=== PATIENT | male | born 1965 ===

== ENCOUNTER 2016-11-19 08:39 | Day surgery (SDC) | payer OTHER ==
[2016-11-19] MEDS ORDERED: Lactated Ringer's 500 ML IV ONE (08:53)
[2016-11-19] MEDS ORDERED: Propofol 10 mg/ml Inj (20 ML) ONE (10:21)
[2016-11-19 11:06] VITALS: BP 114/76; PULSE 89; RESP 12; TEMP 96.9; O2SAT 100
== END 2016-11-19 14:34 | disposition home or self-care (01) ==
LOC: H.ENDO 08:39 → EDSEX 08:39 → MERGE 08:39 → H.ENDO 14:34
PROVIDERS: ATTEND Internal Medicine Gastroenterology
DX: R10.13 Epigastric pain (principal); E78.5 Hyperlipidemia, unspecified; R12 Heartburn

== ENCOUNTER 2016-12-03 09:23 | Day surgery (SDC) | payer OTHER ==
[2016-12-03] MEDS ORDERED: Lactated Ringer's 500 ML IV ONE (09:47)
[2016-12-03 10:01] VITALS: TEMP 97
[2016-12-03] MEDS ORDERED: Propofol 10 mg/ml Inj (20 ML) ONE (10:41)
[2016-12-03 11:28] VITALS: BP 105/76; PULSE 60; RESP 15; O2SAT 98
== END 2016-12-03 11:38 | disposition home or self-care (01) ==
LOC: H.ENDO 09:23
PROVIDERS: ATTEND Internal Medicine Gastroenterology
DX: Z86.010 Personal history of colon polyps (principal); E78.5 Hyperlipidemia, unspecified; M54.9 Dorsalgia, unspecified; D12.3 Benign neoplasm of transverse colon